=== PATIENT | male | born 1990 | race American Indian/Alaskan Native ===

== ENCOUNTER 2017-09-22 03:09 | Emergency (ER) | payer OTHER ==
[2017-09-22 03:26] VITALS: BP 140/77; PULSE 62; RESP 18; TEMP 98.9; O2SAT 100
[2017-09-22 04:47] LABS: ALB/GLOB RATIO 1.3 (1.0-2.1); ALBUMIN 4.3 g/dL (3.5-5.0); ALT/SGPT 32 U/L (21-72); AST/SGOT 22 U/L (17-59); BLOOD UREA NITROGEN 17 mg/dl (9-20); CALCIUM 9.7 mg/dL (8.4-10.2); GFR AFRICAN-AMERICAN > 60; GFR NON-AFRICAN AMERICAN > 60
--- NOTE | 2017-09-22 04:47 | ED PDOC ---
HPI: SOB/CHF/COPD Time Seen by Provider: 09/22/17 03:38 Chief Complaint (Nursing): Shortness Of Breath Chief Complaint (Provider): SOB History Per: Patient History/Exam Limitations: no limitations Additional Complaint(s): 27yo M in ED for eval of the following: SOB, sensation of fullness in chest, need to out in open space and tingling sensation in b/l arms. this episode occurred today and once yesterday. negative for: chest pain, cough, sore throat fever injures to chest/abd, abd pain, back pain. no pmhx no recent drug use no pertinent pmhx Past Medical History Reviewed: Historical Data, Nursing Documentation, Vital Signs Vital Signs: Last Vital Signs Temp 98.9 F 09/22/17 03:24 Pulse 62 09/22/17 03:24 Resp 18 09/22/17 03:26 BP 140/77 09/22/17 03:24 Pulse Ox 100 09/22/17 04:49 - Medical History PMH: Asthma Denies: Chronic Kidney Disease - Family History Family History: States: Stroke, Hypertension Denies: CAD - Home Medications Home Medications: Ambulatory Orders Medication Instructions Recorded Naproxen [Naprosyn] 500 mg PO Q12 #14 tab 01/26/16 Alprazolam [Xanax] 0.5 mg PO DAILY PRN #6 tab 09/22/17 - Allergies Allergies/Adverse Reactions: Allergies Allergy/AdvReac Type Severity Reaction Status Date / Time No Known Allergies Allergy Verified 09/01/14 23:11 Wells Criteria for PE - Wells Criteria for Pulmonary Embolism Clinical Signs and Symptoms of DVT: No P.E is #1 Diagnosis, or Equally Likely: No Heart Rate >100: No Immobilization at least 3 days;Surgery previous 4 weeks: No Previous, objectively diagnosed PE or DVT: No Hemoptysis: No Malignancy w/treatment within 6 months, or palliative: No Total Score: 0 Review of Systems ROS Statement: Except As Marked, All Systems Reviewed And Found Negative Constitutional: Negative for: Fever, Chills Respiratory: Negative for: Cough, Shortness of Breath Physical Exam - Reviewed Nursing Documentation Reviewed: Yes Vital Signs Reviewed: Yes - Physical Exam Appears: Positive for: Well, Non-toxic, No Acute Distress Skin: Positive for: Normal Color, Warm, DRY Eye Exam: Positive for: Normal appearance ENT: Positive for: Normal ENT Inspection Neck: Positive for: Normal, Painless ROM Cardiovascular/Chest: Positive for: Regular Rate, Rhythm Respiratory: Positive for: CNT, Normal Breath Sounds Gastrointestinal/Abdominal: Positive for: Normal Exam, Bowel Sounds, Soft. 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 - Laboratory Results Result Diagrams: 09/22/17 04:30 09/22/17 04:30 - ECG O2 Sat by Pulse Oximetry: 100 - Progress ED Course And Treament: Vital Signs - 24 hr 09/22/17 09/22/17 09/22/17 03:24 03:26 04:47 Temperature 98.9 F Pulse Rate 62 Respiratory 18 18 Rate Blood Pressure 140/77 O2 Sat by Pulse 100 100 Oximetry Orders Category Date Time Status COMP METABOLIC PANEL Stat Chem 09/22/17 04:30 Received CHEST TWO VIEWS (PA/LAT) [RAD] Stat Exams 09/22/17 03:38 Taken CBC (WITH DIFFERENTIAL) Stat KEVON 09/22/17 04:30 Received ALPRAZolam [Xanax] Med 09/22/17 04:21 Discontinued 0.5 mg .ROUTE .STK-MED ONE ALPRAZolam [Xanax] Med 09/22/17 03:52 Discontinued 0.5 mg PO ONCE ONE INFLUENZA A B Stat Serology 09/22/17 04:30 Received Medical Decision Making Medical Decision Makin09/22/17 04:30 Laboratory Results - last 72 hr 09/22/17 04:30 Sodium 141 Potassium 3.4 L Chloride 109 H Carbon Dioxide 25 Anion Gap 10 BUN 17 Creatinine 0.9 Est GFR ( Amer) > 60 Est GFR (Non-Af Amer) > 60 Random Glucose 89 Calcium 9.7 Total Bilirubin 0.3 AST 22 ALT 32 Alkaline Phosphatase 60 Total Protein 7.6 Albumin 4.3 Globulin 3.3 Albumin/Globulin Ratio 1.3 09/22/17 04:30 pt well appearing normal labsand stable VS. most likely symptoms attributed to panic attack, however strongly advised to f.u with pmd for further eval/work up Disposition - Clinical Impression Clinical Impression: Panic attack - Patient ED Disposition Is Patient to be Admitted: No Counseled Patient/Family Regarding: Studies Performed, Diagnosis, Need For Followup, Rx Given - Disposition Referrals: [facility] [Outside] Disposition: Routine/Home Disposition Time: 05:36 Condition: STABLE Prescriptions: Alprazolam [Xanax] 0.5 mg PO DAILY PRN #6 tab PRN Reason: Anxiety Instructions: Panic Attack (ED) Forms: [employer] (Monegasque)
[2017-09-22 05:27] LABS: BASO % 0.3 % (0.0-2.0); EOS % 0.8 % (0.0-4.0); HEMOGLOBIN 13.7 g/dL (12.0-18.0); LYMPH # 1.8 K/uL (1.0-4.3); MEAN CELL VOLUME 89.9 fl (80.0-94.0); MEAN CORPUSCULAR HEMOGLOBIN 29.8 pg (27.0-31.0); MEAN CORPUSCULAR HGB CONC 33.1 g/dL (33.0-37.0); MEAN PLATELET VOLUME 8.6 fl (7.2-11.7); MONO # 0.7 K/uL (0.0-0.8); MONO % 10.5 % (0.0-10.0); NEUT % 61.4 % (50.0-75.0); NRBC % 0.1 % (0.0-0.0); RBC 4.6 Mil/uL (4.40-5.90); RED CELL DISTRIBUTION WIDTH 13.5 % (11.5-14.5); WHITE BLOOD COUNT 6.5 K/uL (4.8-10.8)
--- NOTE | 2017-09-22 08:23 | RAD ---
HISTORY: cough COMPARISON: 09/01/2014 TECHNIQUE: Chest PA and lateral FINDINGS: LUNGS: No active pulmonary disease. PLEURA: No significant pleural effusion identified. No pneumothorax apparent. CARDIOVASCULAR: Normal. OSSEOUS STRUCTURES: No significant abnormalities. VISUALIZED UPPER ABDOMEN: Normal. OTHER FINDINGS: None. IMPRESSION: No active disease.
== END 2017-09-22 06:41 | disposition home or self-care (01) ==
LOC: H.ER 03:09
DX: F41.0 Panic disorder [episodic paroxysmal anxiety] (principal)

== ENCOUNTER 2017-09-29 19:11 | Emergency (ER) | payer SELFPAY ==
[2017-09-29 19:18] VITALS: BP 119/82; PULSE 71; RESP 16; TEMP 98; O2SAT 100
[2017-09-29] MEDS ORDERED: Alum-Mag Hydrox-Simethicone Susp (30 mL) PO STA (20:20)
--- NOTE | 2017-09-29 20:47 | ED PDOC ---
HPI: SOB/CHF/COPD Time Seen by Provider: 09/29/17 19:26 Chief Complaint (Nursing): Shortness Of Breath Chief Complaint (Provider): Shortness of Breath History Per: Patient History/Exam Limitations: no limitations Onset/Duration Of Symptoms: Hrs (x1 prior to arrival), Sudden Onset Current Symptoms Are (Timing): Still Present Quality: Tightness (chest tightness) Associated Symptoms: Productive Cough (minimally). denies: Fever, Chills, Chest Pain Additional Complaint(s): Shad Barroso, a 27 year old male presents to the emergency department complaining of shortness of breath with sudden onset one hour prior to arrival while watching TV. Also reports chest tightness, as well as nausea for 5 days associated with decreased appetite. He was seen here on 09/22/2017 with a similar complaint and was diagnosed with a panic attack. Patient also has had a minimally productive cough for 1 month, but no fever or chills. Denies any associated stress, feelings of anxiety, diarrhea, vomiting, or constipation. PMD: Family practice clinic Past Medical History Reviewed: Historical Data, Nursing Documentation, Vital Signs Vital Signs: Last Vital Signs Temp 98.0 F 09/29/17 19:18 Pulse 71 09/29/17 19:18 Resp 16 09/29/17 19:18 BP 119/82 09/29/17 19:18 Pulse Ox 100 09/29/17 22:43 - Medical History PMH: Asthma (as a child) Denies: Chronic Kidney Disease - Surgical History Surgical History: No Surg Hx - Family History Family History: States: Stroke, Diabetes (in brother), Hypertension Denies: CAD - Social History Current smoker - smoking cessation education provided: No Alcohol: Occasional Drugs: Cannabis (smokes marijuana occasionally) - Home Medications Home Medications: Ambulatory Orders Medication Instructions Recorded Naproxen [Naprosyn] 500 mg PO Q12 #14 tab 01/26/16 Alprazolam [Xanax] 0.5 mg PO DAILY PRN #6 tab 09/22/17 Cyclobenzaprine [Cyclobenzaprine 10 mg PO TID PRN #10 tab 09/29/17 HCl] Famotidine [Pepcid] 40 mg PO DAILY PRN #14 tab 09/29/17 - Allergies Allergies/Adverse Reactions: Allergies Allergy/AdvReac Type Severity Reaction Status Date / Time No Known Allergies Allergy Verified 09/01/14 23:11 Review of Systems ROS Statement: Except As Marked, All Systems Reviewed And Found Negative (As per HPI, otherwise negative) Constitutional: Negative for: Fever, Chills Cardiovascular: Positive for: Other (chest tightness) Respiratory: Positive for: Cough (1 month), Shortness of Breath Gastrointestinal: Positive for: Nausea, Other (decreased appetite). Negative for: Vomiting, Constipation Musculoskeletal: Positive for: Neck Pain (undergoing workup at clinic for intermittent neck spasms) Neurological: Negative for: Dizziness Psych: Negative for: Anxiety, Other (Stress) Physical Exam - Reviewed Nursing Documentation Reviewed: Yes Vital Signs Reviewed: Yes - Physical Exam Appears: Positive for: Non-toxic, No Acute Distress Head Exam: Positive for: ATRAUMATIC, NORMOCEPHALIC Skin: Positive for: Warm, Dry Eye Exam: Positive for: EOMI, PERRL ENT: Negative for: Pharyngeal Erythema, Tonsillar Exudate Neck: Positive for: Painless ROM, Supple, Trachea Midline, Pain On Movement Of Neck (LEFT) Cardiovascular/Chest: Positive for: Regular Rate, Rhythm, Chest Non Tender. Negative for: Murmur Respiratory: Positive for: Normal Breath Sounds. Negative for: Accessory Muscle Use, Rales, Rhonchi, Wheezing, Respiratory Distress Gastrointestinal/Abdominal: Positive for: Soft. Negative for: Tenderness Back: Positive for: Normal Inspection. Negative for: Vertebral Tenderness Extremity: Positive for: Normal ROM. 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 Negative for: Motor/Sensory Deficits - Laboratory Results Result Diagrams: 09/29/17 20:50 09/29/17 20:50 - ECG ECG: Positive for: Interpreted By Ms ECG Rhythm: Positive for: Normal QRS, Normal ST Segment, Sinus Rhythm O2 Sat by Pulse Oximetry: 100 (RA) Pulse Ox Interpretation: Normal - Progress Condition: Improved Medical Decision Making Medical Decision Making: Time: 20:19 Initial Impression: Shortness of Breath Differential Diagnosis includes but is not limited to: Anxiety or Panic Attack, Pancreatitis, Gastritis, Reflux Initial Plan: --Arterial Blood Gas Shock Panel --EKG --B-Type Natriuretic Peptide --CMP --Creatine Phosphokinase --Drug Screen, Urine --Lipase --Magnesium --Phosphorous --Troponin I --Urine Dipstick --CBC --Potassium Bicarbonate/ Potass 50 meq PO ONCE --Aluminum Hydroxide/ Magnesium 30 ml PO --Pepcid 40 mg PO --Reevaluation Feel better in reevaluation. Reviewed findings w patient. will treat possible reflux and neck spasm Clinical Impression: Upon provider evaluation patient is medically stable, and requires no further treatment in the ED at this time. Patient will be discharged with Rx for Cyclobenzaprine HCl and Pepcid 40 mg PO daily. Counseling was provided and all questions were answered regarding diagnosis and need for follow up with PMD. There is agreement to discharge plan. Return if symptoms persist or worsen. Scribe Attestation: Documented by Madeline Valle, acting as a scribe for Ирина Lindsay MD Provider Scribe Attestation: All medical record entries made by the Scribe were at my direction and personally dictated by me. I have reviewed the chart and agree that the record accurately reflects my personal performance of the history, physical exam, medical decision making, and the department course for this patient. I have also personally directed, reviewed, and agree with the discharge instructions and disposition. Disposition - Clinical Impression Clinical Impression: Dyspnea, Neck strain - Patient ED Disposition Is Patient to be Admitted: No - Disposition Referrals: [facility] [Outside] (FOLLOW UP SCHEDULED WITH CLINIC FOR REEVALUATION KEEP YOUR APPOINTMENT FOR YOUR ULTRASOUND ON SUNDAY) Disposition: Routine/Home Disposition Time: 22:13 Condition: IMPROVED Prescriptions: Cyclobenzaprine [Cyclobenzaprine HCl] 10 mg PO TID PRN #10 tab PRN Reason: Muscle Spasm Famotidine [Pepcid] 40 mg PO DAILY PRN #14 tab PRN Reason: reflux Instructions: Cervical Strain (DC), Hypokalemia (ED), Dyspnea (ED) Forms: [employer] (Swiss)
[2017-09-29] MEDS ORDERED: Alum-Mag Hydrox-Simethicone Susp (30 mL) ONE (20:52)
[2017-09-29 20:56] LABS: BASO % 0.4 % (0.0-2.0); EOS # 0.1 K/uL (0.0-0.7); EOS % 1.1 % (0.0-4.0); HEMOGLOBIN 14.1 g/dL (12.0-18.0); LYMPH # 2.1 K/uL (1.0-4.3); LYMPH % 30.9 % (20.0-40.0); MEAN CELL VOLUME 89.1 fl (80.0-94.0); MEAN CORPUSCULAR HEMOGLOBIN 29.7 pg (27.0-31.0); MEAN CORPUSCULAR HGB CONC 33.4 g/dL (33.0-37.0); MEAN PLATELET VOLUME 8.1 fl (7.2-11.7); MONO # 0.8 K/uL (0.0-0.8); MONO % 11.7 % (0.0-10.0); NEUT # 3.7 K/uL (1.8-7.0); NEUT % 55.9 % (50.0-75.0); NRBC % 0.1 % (0.0-0.0); RBC 4.73 Mil/uL (4.40-5.90); RED CELL DISTRIBUTION WIDTH 13.2 % (11.5-14.5); WHITE BLOOD COUNT 6.7 K/uL (4.8-10.8)
[2017-09-29 21:06] LABS: ABG ALLEN TEST YES; ARTERIAL BLOOD GAS HCO3 27.9 mmol/L (21-28); ARTERIAL BLOOD GAS O2 SAT 100.5 % (95-98); ARTERIAL BLOOD GAS PCO2 30 mm/Hg (35-45); ARTERIAL BLOOD GAS PH 7.54 (7.35-7.45); ARTERIAL BLOOD GAS PO2 125 mm/Hg (80-100); ARTERIAL BLOOD GAS TCO2 26.6 mmol/L (22-28)
[2017-09-29 21:20] LABS: ALB/GLOB RATIO 1.1 (1.0-2.1); ALBUMIN 3.9 g/dL (3.5-5.0); ALT/SGPT 31 U/L (21-72); AST/SGOT 22 U/L (17-59); BLOOD UREA NITROGEN 15 mg/dl (9-20); CALCIUM 9.8 mg/dL (8.4-10.2); GFR AFRICAN-AMERICAN > 60; GFR NON-AFRICAN AMERICAN > 60; LIPASE 150 U/L (23-300); MAGNESIUM 1.8 MG/DL (1.6-2.3)
[2017-09-29] MEDS ORDERED: K-Lyte 25meq EF Tab PO ONE (21:25)
[2017-09-29 21:30] LABS: B-TYPE NATRIURETIC PEPTIDE 30.6 pg/ml (0-450)
[2017-09-29 23:03] LABS: BARBITURATES, UR NEGATIVE (NEGATIVE); BENZODIAZEPINES, UR NEGATIVE (NEGATIVE); OPIATES, UR NEGATIVE (NEGATIVE); PHENCYCLIDINE, UR NEGATIVE (NEGATIVE)
== END 2017-09-29 22:32 | disposition home or self-care (01) ==
LOC: H.ER 19:11
DX: R06.00 Dyspnea, unspecified (principal); E87.6 Hypokalemia; M54.2 Cervicalgia

== ENCOUNTER 2017-10-08 | Emergency (ER) | payer SELFPAY ==
[2017-10-08 01:19] VITALS: BP 119/68; PULSE 71; RESP 16; TEMP 98.4; O2SAT 98
--- NOTE | 2017-10-08 03:04 | ED PDOC ---
HPI: Headache Time Seen by Provider: 10/08/17 02:48 Chief Complaint (Nursing): Headache Chief Complaint (Provider): Neck pain History Per: Patient Additional Complaint(s): 27 yo male, PMH of asthma, presents to Ed with complaints of left sided neck pain x 3 weeks. Pt reports that he feels "small balls" on the base of his neck. Pt has been taken muscle relaxer, prescribed to him from clinic; however, no relief. Pt had an US done, ordered by clinic, and has been anxious about results. No feve ror chills. Pt does admit to recent URI Past Medical History Reviewed: Nursing Documentation, Vital Signs Vital Signs: Last Vital Signs Temp 98.4 F 10/08/17 01:08 Pulse 71 10/08/17 01:08 Resp 16 10/08/17 01:08 BP 119/68 10/08/17 01:08 Pulse Ox 98 10/08/17 01:08 - Medical History PMH: Asthma (as a child) Denies: Chronic Kidney Disease - Surgical History Surgical History: No Surg Hx - Family History Family History: States: Stroke, Diabetes (in brother), Hypertension Denies: CAD - Living Arrangements Living Arrangements: With Family - Social History Current smoker - smoking cessation education provided: No Alcohol: Social Drugs: Denies - Home Medications Home Medications: Ambulatory Orders Medication Instructions Recorded Naproxen [Naprosyn] 500 mg PO Q12 #14 tab 01/26/16 Alprazolam [Xanax] 0.5 mg PO DAILY PRN #6 tab 09/22/17 Cyclobenzaprine [Cyclobenzaprine 10 mg PO TID PRN #10 tab 09/29/17 HCl] Famotidine [Pepcid] 40 mg PO DAILY PRN #14 tab 09/29/17 - Allergies Allergies/Adverse Reactions: Allergies Allergy/AdvReac Type Severity Reaction Status Date / Time No Known Allergies Allergy Verified 09/01/14 23:11 Review of Systems ROS Statement: Except As Marked, All Systems Reviewed And Found Negative Musculoskeletal: Positive for: Neck Pain Physical Exam - Reviewed Nursing Documentation Reviewed: Yes Vital Signs Reviewed: Yes - Physical Exam Appears: Positive for: Well, Non-toxic, No Acute Distress Head Exam: Positive for: ATRAUMATIC, NORMAL INSPECTION, NORMOCEPHALIC Skin: Positive for: Normal Color, Warm, DRY Eye Exam: Positive for: EOMI, Normal appearance, PERRL ENT: Positive for: Normal ENT Inspection Neck: Positive for: Normal, Painless ROM, Supple, Trachea Midline, See Diagram ( (+) small ~ 1-2cm,mobile, boggy mass at base of left side of neck, consistent with lymph node. ). Negative for: Decreased ROM, Limited ROM, Pain On Movement Of Neck Cardiovascular/Chest: Positive for: Regular Rate, Rhythm Respiratory: Positive for: CNT, Normal Breath Sounds Gastrointestinal/Abdominal: Positive for: Normal Exam, Bowel Sounds, Soft Back: Positive for: Normal Inspection Extremity: Positive for: Normal ROM Neurologic/Psych: Positive for: Alert, Oriented - ECG O2 Sat by Pulse Oximetry: 98 Medical Decision Making Medical Decision Making: Pt medicated with Motrin PO US report 10/02/17: IMPRESSION: Limited lymphadenopathy is identified at the inferior left neck soft tissue superficially. Further neck characterization can provided by CT with contrast if clinically warranted. Pt educated on lymph nodes, as well as US report and demonstrated full understanding Pt calmer after hearing US report. Advised to continue on Motrin as directed and to follow up with clinic as scheduled Disposition - Clinical Impression Clinical Impression: Lymphadenopathy - Patient ED Disposition Is Patient to be Admitted: No - Disposition Disposition: Routine/Home Disposition Time: 03:09 Condition: STABLE - POA Present On Arrival: None
== END 2017-10-08 03:23 | disposition home or self-care (01) ==
LOC: H.ER
DX: R59.9 Enlarged lymph nodes, unspecified (principal); J45.909 Unspecified asthma, uncomplicated

== ENCOUNTER 2017-11-30 00:22 | Emergency (ER) | payer SELFPAY ==
[2017-11-30 00:46] VITALS: BMI 22.6
[2017-11-30 00:51] VITALS: BP 118/56; PULSE 75; RESP 16; TEMP 98.5; O2SAT 98
--- NOTE | 2017-11-30 02:19 | ED PDOC ---
HPI: Back Time Seen by Provider: 11/30/17 00:44 Chief Complaint (Nursing): Back Pain Chief Complaint (Provider): back pain History Per: Patient History/Exam Limitations: no limitations Onset/Duration Of Symptoms: Days (11/26/17) Current Symptoms Are (Timing): Still Present Quality Of Discomfort: "Pain" Exacerbating Factor(s): Movement, Other (twists and bends) Additional Complaint(s): 27 year old male presents to the ED complaining of back pain onset Sunday, 11/26. Reports pain has been worse since onset and worsens whenever he moves, twists, bends. Denies heavy lifting, abdominal pain, hematuria, fever, chills, numbness or weakness of extremities, or body pain. PMD: July Keating Past Medical History Reviewed: Historical Data, Nursing Documentation, Vital Signs Vital Signs: Last Vital Signs Temp 98.5 F 11/30/17 00:47 Pulse 75 11/30/17 00:47 Resp 16 11/30/17 00:47 BP 118/56 L 11/30/17 00:47 Pulse Ox 98 11/30/17 00:47 - Medical History PMH: Asthma (as a child), Fractures (Left Lower extremity) Denies: Chronic Kidney Disease - Family History Family History: States: Stroke, Diabetes (in brother), Hypertension Denies: CAD - Home Medications Home Medications: Ambulatory Orders Medication Instructions Recorded Naproxen [Naprosyn] 500 mg PO Q12 #14 tab 01/26/16 Alprazolam [Xanax] 0.5 mg PO DAILY PRN #6 tab 09/22/17 Cyclobenzaprine [Cyclobenzaprine 10 mg PO TID PRN #10 tab 09/29/17 HCl] Famotidine [Pepcid] 40 mg PO DAILY PRN #14 tab 09/29/17 Ibuprofen [Motrin] 600 mg PO Q6 #20 tab 10/08/17 Cyclobenzaprine [Cyclobenzaprine 10 mg PO BID #15 tab 11/30/17 HCl] Ibuprofen [Motrin Tab] 600 mg PO Q6 #30 tab 11/30/17 Lidocaine 1 each TP DAILY #5 adh..patch 11/30/17 - Allergies Allergies/Adverse Reactions: Allergies Allergy/AdvReac Type Severity Reaction Status Date / Time No Known Allergies Allergy Verified 11/30/17 00:46 Review of Systems ROS Statement: Except As Marked, All Systems Reviewed And Found Negative Constitutional: Negative for: Fever, Chills, Other (body pain) Gastrointestinal: Negative for: Abdominal Pain Genitourinary Male: Negative for: Hematuria Neurological: Negative for: Weakness, Numbness Physical Exam - Reviewed Nursing Documentation Reviewed: Yes Vital Signs Reviewed: Yes - Physical Exam Appears: Positive for: Well, Non-toxic, No Acute Distress Head Exam: Positive for: ATRAUMATIC, NORMAL INSPECTION, NORMOCEPHALIC Skin: Positive for: Normal Color, Warm, Dry Eye Exam: Positive for: EOMI, Normal appearance, PERRL ENT: Positive for: Normal ENT Inspection Neck: Positive for: Normal, Painless ROM, Supple. Negative for: Decreased ROM, Limited ROM Cardiovascular/Chest: Positive for: Regular Rate, Rhythm. Negative for: Murmur Respiratory: Positive for: Normal Breath Sounds. Negative for: Decreased Breath Sounds, Accessory Muscle Use, Respiratory Distress Gastrointestinal/Abdominal: Positive for: Normal Exam, Bowel Sounds, Soft. Negative for: Tenderness, Guarding, Rebound Back: Positive for: Other (mild tenderness to palpation to upper left thoracic paravertebral) Extremity: Positive for: Normal ROM. Negative for: Tenderness, Pedal Edema, Deformity Neurologic/Psych: Positive for: Alert, Oriented (x3), Gait - ECG O2 Sat by Pulse Oximetry: 98 (RA) Pulse Ox Interpretation: Normal Medical Decision Making Medical Decision Making: Time: 00:48 A/P: Well appearing male with back strain. Not concerned for cauda equina, spinal-stenosis, kidney stone, or other significant process --ED Urine dipstick (POC) --Chest two views (PA/LAT) [RAD] --Flexeril 10 mg PO stat --Toradol 60 mg IM --Reevaluation 3AM Patient is feeling better, will d/c home with medications. Advised patient to f /u w/ PMD on Sunday. Return precautions given. Scribe Attestation: Documented by Madeline Valle, acting as a scribe for Yasir Franks MD Provider Scribe Attestation: All medical record entries made by the Scribe were at my direction and personally dictated by me. I have reviewed the chart and agree that the record accurately reflects my personal performance of the history, physical exam, medical decision making, and the department course for this patient. I have also personally directed, reviewed, and agree with the discharge instructions and disposition. Disposition - Clinical Impression Clinical Impression: Upper back strain - Disposition Referrals: July Keating MD [Primary Care Provider] - Disposition: Routine/Home Disposition Time: 03:11 Condition: IMPROVED Prescriptions: Cyclobenzaprine [Cyclobenzaprine HCl] 10 mg PO BID #15 tab Ibuprofen [Motrin Tab] 600 mg PO Q6 #30 tab Lidocaine 1 each TP DAILY #5 adh..patch Instructions: Muscle Strain Forms: [employer] (French)
--- NOTE | 2017-11-30 08:16 | RAD ---
HISTORY: L rib pain COMPARISON: Chest radiographs 09/22/2017. TECHNIQUE: Chest PA and lateral FINDINGS: LUNGS: No active pulmonary disease. PLEURA: No significant pleural effusion identified. No pneumothorax apparent. CARDIOVASCULAR: Normal. OSSEOUS STRUCTURES: No significant abnormalities. VISUALIZED UPPER ABDOMEN: Normal. OTHER FINDINGS: None. IMPRESSION: No interval acute cardiopulmonary disease appreciated.
== END 2017-11-30 03:20 | disposition home or self-care (01) ==
LOC: H.ER 00:22
DX: S39.012A Strain of muscle, fascia and tendon of lower back, initial encounter (principal); X50.9XXA Other and unspecified overexertion or strenuous movements or postures, initial encounter; Y92.89 Other specified places as the place of occurrence of the external cause; J45.909 Unspecified asthma, uncomplicated
CPT/HCPCS: 71046; 96372; 99283; J1885

== ENCOUNTER 2018-06-15 14:45 | Emergency (ER) | payer SELFPAY ==
[2018-06-15 14:46] VITALS: BMI 22.6
[2018-06-15 15:50] VITALS: BP 121/76; PULSE 63; RESP 18; TEMP 98.4; O2SAT 99
[2018-06-15] MEDS ORDERED: Amoxicillin-Clav 875-125 mg Tab PO STA (15:59)
--- NOTE | 2018-06-15 16:14 | ED PDOC ---
HPI: Dental Pain/Injury Time Seen by Provider: 06/15/18 15:50 Chief Complaint (Nursing): Dental Pain Chief Complaint (Provider): Dental Pain History Per: Patient History/Exam Limitations: no limitations Onset/Duration Of Symptoms: Days (x1) Additional Complaint(s): Shad Barroso is a 28 year old male with no past medical history who is presenting to the ED for evaluation of left lower molar pain onset last night, and throat pain onset this morning. Patient reports pain with swallowing and states he has not taken any medications prior to arrival. He admits that his last dental checkup was 6-10 months ago. He denies any fever, chills, ear pain, cough, nausea, vomiting, diarrhea, chest pain, or abdominal pain. PMD: Clinic Past Medical History Reviewed: Historical Data, Nursing Documentation, Vital Signs Vital Signs: Last Vital Signs Temp 98.4 F 06/15/18 15:49 Pulse 63 06/15/18 15:49 Resp 18 06/15/18 15:49 BP 121/76 06/15/18 15:49 Pulse Ox 99 06/15/18 15:49 - Medical History PMH: Asthma (as a child), Fractures (Left Lower extremity) - Surgical History Surgical History: No Surg Hx - Family History Family History: States: Hypertension - Social History Current smoker - smoking cessation education provided: No Alcohol: Social Drugs: Denies - Home Medications Home Medications: Ambulatory Orders Medication Instructions Recorded Naproxen [Naprosyn] 500 mg PO Q12 #14 tab 01/26/16 Alprazolam [Xanax] 0.5 mg PO DAILY PRN #6 tab 09/22/17 Cyclobenzaprine [Cyclobenzaprine 10 mg PO TID PRN #10 tab 09/29/17 HCl] Famotidine [Pepcid] 40 mg PO DAILY PRN #14 tab 09/29/17 Ibuprofen [Motrin] 600 mg PO Q6 #20 tab 10/08/17 Cyclobenzaprine [Cyclobenzaprine 10 mg PO BID #15 tab 11/30/17 HCl] RX: Ibuprofen [Motrin Tab] 600 mg PO Q6 #30 tab 11/30/17 RX: Lidocaine 1 each TP DAILY #5 adh..patch 11/30/17 Acetaminophen [Acetaminophen 8 650 mg PO Q8 PRN #21 tablet.er 06/15/18 Hour] Amoxicillin/Clavulanate [Augmentin 1 tab PO BID #14 tab 06/15/18 875 MG-125 MG] RX: Ibuprofen [Motrin Tab] 600 mg PO Q6 PRN #20 tab 06/15/18 - Allergies Allergies/Adverse Reactions: Allergies Allergy/AdvReac Type Severity Reaction Status Date / Time No Known Allergies Allergy Verified 06/15/18 15:49 Review of Systems ROS Statement: Except As Marked, All Systems Reviewed And Found Negative Constitutional: Negative for: Fever, Chills ENT: Positive for: Throat Pain, Other (dental pain). Negative for: Ear Pain Cardiovascular: Negative for: Chest Pain Respiratory: Negative for: Cough Gastrointestinal: Negative for: Nausea, Vomiting, Abdominal Pain, Diarrhea Physical Exam - Reviewed Nursing Documentation Reviewed: Yes Vital Signs Reviewed: Yes - Physical Exam Comments: GENERAL APPEARANCE: Patient is awake, alert, oriented x 3, in no acute distress. Resting comfortably. SKIN: Warm, dry; (-) cyanosis. NECK: Supple, FROM ENMT: Mucous membranes moist. (-) muffled voice, (-) drooling. (+) Left sided tonsillar erythema, (+) left sided exudates, (+) 2+ tonsillar hypertrophy bilaterally , (+) Dental rot to left lower posterior most molar with surrounding gingival erythema, (+) dental reji and tenderness to palpation. (+) uvula midline. TMs: non-bulging, non-erythematous. Airway patent, (-) stridor. FROM of mandible. CHEST AND RESPIRATORY: (-) rales, (-) rhonchi, (-) wheezes; breath sounds equal bilaterally. Respirations even and nonlabored, speaking in full sentences. HEART AND CARDIOVASCULAR: (-) irregularity EXTREMITIES: (-) deformity NEURO AND PSYCH: Mental status as above. Gait: steady. Speech Clear. (-) facial asymmetry (-) aphasia. - ECG O2 Sat by Pulse Oximetry: 99 (RA) Pulse Ox Interpretation: Normal Medical Decision Making Medical Decision Making: Time: 15:50 Impression: toothache probable dental infection, tonsillitis Plan: --Augmentin 1 tab PO --Toradol 30 mg IM --Throat Culture --Rapid Strep --Re-evaluation 1630 Rapid Strep: Negative On re-evaluation, patient reports improvement of symptoms. On exam, patient remains AAOx3, in no acute distress. Lungs clear to auscultation, cardiac RRR, repeat neuro exam shows no focal findings. VSS, stable for discharge. Lab/Diagnostic results d/w the patient in great detail. Diagnosis of thrat pain/tonsillitis, dental pain/infection d/w the patient. Based on history, exam and diagnostic results, plan will be for outpatient follow up with PMD and dental. Patient instructed to follow-up with pmd / referral provided / the clinic in 1- 2 days without fail. Advised to take medication as prescribed. Return to the emergency room at any time for any new or worsening symptoms. Patient states he fully agrees with and understands discharge instructions. States that he agrees with the plan and disposition. Verbalized and repeated discharge instructions and plan. I have given the patient opportunity to ask any additional questions. Scribe Attestation: Documented by Suzanna Peoples, acting as a scribe for Tierney Rodriguez PA-C. Provider Scribe Attestation: All medical record entries made by the Scribe were at my direction and personally dictated by me. I have reviewed the chart and agree that the record accurately reflects my personal performance of the history, physical exam, medical decision making, and the department course for this patient. I have also personally directed, reviewed, and agree with the discharge instructions and disposition. Disposition - Clinical Impression Clinical Impression: Dental caries, Tonsillitis, Dental infection, Throat pain in adult - Patient ED Disposition Is Patient to be Admitted: No Counseled Patient/Family Regarding: Studies Performed, Diagnosis, Need For Followup, Rx Given - Disposition Referrals: [facility] [Outside] Disposition: Routine/Home Disposition Time: 16:34 Condition: STABLE Additional Instructions: ALSO FOLLOW UP WITH DENTAL SOON POSSIBLE. The emergency medical care you received today was directed at your acute symptoms. If you were prescribed any medication, please fill it and take as directed. It may take several days for your symptoms to resolve. Return to the Emergency Department if your symptoms worsen, do not improve, or if you have any other problems. Please contact your doctor in 2 days for re-evaluation and follow up / or call one of the physicians/clinics you have been referred to that are listed on the Patient Visit Information form that is included in your discharge packet. Bring any paperwork you were given at discharge with you along with any medications you are taking to your follow up visit. Our treatment cannot replace ongoing medical care by a primary care provider (PCP) outside of the emergency department. Prescriptions: Acetaminophen [Acetaminophen 8 Hour] 650 mg PO Q8 PRN #21 tablet.er PRN Reason: Pain, Moderate (4-7) Amoxicillin/Clavulanate [Augmentin 875 MG-125 MG] 1 tab PO BID #14 tab RX: Ibuprofen [Motrin Tab] 600 mg PO Q6 PRN #20 tab PRN Reason: Pain, Moderate (4-7) Instructions: Tooth Decay, Adult, Sore Throat in Adults, Dental Pain Forms: [employer] Connect (Telugu), [facility] ED School/Work Excuse Print Language: AZERBAIJANI - POA Present On Arrival: None Results - Lab Results Lab Results: 06/15/18 16:13 Grp A Beta Strep Ag Negative
[2018-06-15] MEDS ORDERED: Amoxicillin-Clav 875-125 mg Tab PO ONE (16:17)
== END 2018-06-15 16:51 | disposition home or self-care (01) ==
LOC: H.ER 14:45
DX: K02.9 Dental caries, unspecified (principal); J03.90 Acute tonsillitis, unspecified; K04.7 Periapical abscess without sinus; J45.909 Unspecified asthma, uncomplicated
CPT/HCPCS: 87070; 87430; 96372; 99283; J1885

== ENCOUNTER 2019-02-08 18:45 | Emergency (ER) | payer BC, OTHER, SELFPAY ==
[2019-02-08 19:14] VITALS: O2SAT 100; BMI 25.6
--- NOTE | 2019-02-08 19:39 | ED PDOC ---
HPI: Chest Pain Time Seen by Provider: 02/08/19 19:14 Chief Complaint (Nursing): Chest Pain Chief Complaint (Provider): upper extremity pain History Per: Patient History/Exam Limitations: no limitations Onset/Duration Of Symptoms: Days (5x) Current Symptoms Are (Timing): Still Present Severity: Moderate Additional Complaint(s): 28 year old male with no pertinent past medical history presents to the ED for an evaluation of left arm pain that started 4x days ago. Patient states that 4x days ago, he began experiencing left shoulder pain that radiated down his left arm. The shoulder pain has since become intermittent with the pain to his left upper arm radiating down his left hand. Patient further reports that yesterday he noted having left sided chest pain. Patient states that the arm pain worsens with movement of the left shoulder. Patient is right hand dominant. Patient denies having shortness of breath, fevers, chills, hemoptysis, history of previous pulmonary embolism or DVT, cough, illicit drug use, smoking, familial history of CAD or NV. PMD: None provided Past Medical History Reviewed: Historical Data, Nursing Documentation, Vital Signs Vital Signs: Last Vital Signs Temp 98.4 F 02/08/19 19:13 Pulse 61 02/08/19 19:13 Resp 16 02/08/19 19:13 BP 115/68 02/08/19 19:13 Pulse Ox 100 02/08/19 19:13 BRAULIO Report Viewed: Yes Primary Care Provider: Non [facility] Provider, - Medical History PMH: Asthma (as a child), Fractures (Left Lower extremity) Denies: Chronic Kidney Disease - Family History Family History: States: Stroke, Diabetes (in brother), Hypertension Denies: NV, CAD - Social History Current smoker - smoking cessation education provided: No Drugs: Denies - Immunization History Hx Tetanus Toxoid Vaccination: Yes Hx Influenza Vaccination: No Hx Pneumococcal Vaccination: No - Home Medications Home Medications: Ambulatory Orders Medication Instructions Recorded Naproxen [Naprosyn] 500 mg PO Q12 #14 tab 01/26/16 Alprazolam [Xanax] 0.5 mg PO DAILY PRN #6 tab 09/22/17 Cyclobenzaprine [Cyclobenzaprine 10 mg PO TID PRN #10 tab 09/29/17 HCl] Famotidine [Pepcid] 40 mg PO DAILY PRN #14 tab 09/29/17 Ibuprofen [Motrin] 600 mg PO Q6 #20 tab 10/08/17 Cyclobenzaprine [Cyclobenzaprine 10 mg PO BID #15 tab 11/30/17 HCl] Ibuprofen [Motrin Tab] 600 mg PO Q6 #30 tab 11/30/17 Lidocaine 1 each TP DAILY #5 adh..patch 11/30/17 Acetaminophen [Acetaminophen 8 650 mg PO Q8 PRN #21 tablet.er 06/15/18 Hour] Amoxicillin/Clavulanate [Augmentin 1 tab PO BID #14 tab 06/15/18 875 MG-125 MG] Ibuprofen [Motrin Tab] 600 mg PO Q6 PRN #20 tab 06/15/18 Meloxicam [Mobic] 1 - 2 tab PO DAILY PRN #10 tab 02/08/19 - Allergies Allergies/Adverse Reactions: Allergies Allergy/AdvReac Type Severity Reaction Status Date / Time No Known Allergies Allergy Verified 06/15/18 15:49 QUETA Risk Score for UA/NSTEMI - QUETA Risk Score Age > 64: NO 3 or more CAD Risk Factors: NO Known CAD (Stenosis greater than 50%): NO Aspirin use in past 7 days: NO Severe Angina: NO EKG ST changes greater than 0.5mm: NO Positive Cardiac Marker: NO QUETA Score: 0 Risk %: 5% Review of Systems ROS Statement: Except As Marked, All Systems Reviewed And Found Negative Constitutional: Negative for: Fever, Chills Cardiovascular: Positive for: Chest Pain (left sided.) Respiratory: Negative for: Cough, Shortness of Breath, Hemoptysis Musculoskeletal: Positive for: Other (left shoulder pain radiating down left arm, left upper arm pain radiating down to left hand.) Physical Exam - Reviewed Nursing Documentation Reviewed: Yes Vital Signs Reviewed: Yes - Physical Exam Appears: Positive for: Well, Non-toxic, No Acute Distress Head Exam: Positive for: ATRAUMATIC, NORMOCEPHALIC Skin: Positive for: Normal Color, Warm, Dry Cardiovascular/Chest: Positive for: Regular Rate, Rhythm Respiratory: Positive for: Normal Breath Sounds Pulses-Radial (L): 2+ Pulses-Radial (R): 2+ Gastrointestinal/Abdominal: Positive for: Normal Exam, Soft. Negative for: Tenderness Extremity: Positive for: Other (left upper extremity: (-) tenderness, (-) swelling, (-) deformity. Full ROM actively of all joints. 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 Negative for: ST/T Changes O2 Sat by Pulse Oximetry: 100 (RA) Pulse Ox Interpretation: Normal Medical Decision Making Medical Decision Makin:14 Initial impression: 28 year old male with upper extremity pain and chest pain. Initial plan: * XRay chest 2 views * XRay shoulder left * EKG * CMP * drug screen urinary * troponin I * CBC with differential * reevaluation 20:39 Patient informed of all results. Patient agrees with plan and care. Patient offered toradol, but refuses and states that he feels much better. Patient advised to follow up with orthopedist and PMD, and to return to ED immediately if symptoms persist or worsen. ScribeAttestation: Documented byTierney Raymundo, acting as a scribe for Sergio Green Provider ScribeAttestation: All medical record entries made by the Scribe were at my direction and personally dictated by me. I have reviewed the chart and agree that the record accurately reflects my personal performance of the history, physical exam, medical decision making, and the department course for this patient. I have also personally directed, reviewed, and agree with the discharge instructions and disposition. Disposition - Clinical Impression Clinical Impression: Chest pain, Shoulder pain - Patient ED Disposition Is Patient to be Admitted: No - Disposition Referrals: [facility] [Outside] Juan F Benedict III, MD [Staff Provider] - Disposition Time: 20:39 Additional Instructions: FOLLOW UP WITH YOUR DOCTOR FOR FURTHER EVALUATION RETURN TO ED IMMEDIATELY IF SYMPTOMS WORSEN Prescriptions: Meloxicam [Mobic] 1 - 2 tab PO DAILY PRN #10 tab PRN Reason: Pain Instructions: Chest Pain That Is Not Caused by the Heart (DC), Shoulder Pain (DC) Forms: [employer] Connect (Azeri) Print Language: LITHUANIAN
[2019-02-08 19:56] LABS: BASO % 0.5 % (0.0-2.0); EOS # 0.1 K/uL (0.0-0.7); EOS % 1.3 % (0.0-4.0); HEMOGLOBIN 14.3 g/dL (12.0-18.0); LYMPH # 2.6 K/uL (1.0-4.3); LYMPH % 35.4 % (20.0-40.0); MEAN CELL VOLUME 89.8 fl (80.0-94.0); MEAN CORPUSCULAR HEMOGLOBIN 30.3 pg (27.0-31.0); MEAN CORPUSCULAR HGB CONC 33.8 g/dL (33.0-37.0); MEAN PLATELET VOLUME 8.1 fl (7.2-11.7); MONO # 0.8 K/uL (0.0-0.8); MONO % 10.4 % (0.0-10.0); NEUT # 3.8 K/uL (1.8-7.0); NEUT % 52.4 % (50.0-75.0); RBC 4.7 Mil/uL (4.40-5.90); RED CELL DISTRIBUTION WIDTH 13.8 % (11.5-14.5); WHITE BLOOD COUNT 7.3 K/uL (4.8-10.8)
[2019-02-08 20:10] LABS: ALB/GLOB RATIO 1.2 (1.0-2.1); ALBUMIN 4.3 g/dL (3.5-5.0); ALT/SGPT 27 U/L (21-72); AST/SGOT 35 U/L (17-59); BLOOD UREA NITROGEN 15 mg/dl (9-20); CALCIUM 9.3 mg/dL (8.4-10.2); GFR NON-AFRICAN AMERICAN > 60
[2019-02-08 20:54] VITALS: BP 123/71; PULSE 64; RESP 17; TEMP 98.6
--- NOTE | 2019-02-09 09:25 | RAD ---
Date of service: 02/08/2019 HISTORY: cough COMPARISON: Chest radiographs 11/30/2017. TECHNIQUE: Chest PA and lateral views FINDINGS: LUNGS: No active pulmonary disease. PLEURA: No significant pleural effusion identified. No pneumothorax apparent. CARDIOVASCULAR: No aortic atherosclerotic calcification present. Normal cardiac size. No pulmonary vascular congestion. OSSEOUS STRUCTURES: No significant abnormalities. VISUALIZED UPPER ABDOMEN: Normal. OTHER FINDINGS: None. IMPRESSION: No interval acute cardiopulmonary disease appreciated.
--- NOTE | 2019-02-09 09:27 | RAD ---
Date of service: 02/08/2019 PROCEDURE: Radiographs of the Left Shoulder HISTORY: PAIN COMPARISON: No prior. TECHNIQUE: 3 views obtained. FINDINGS: BONES: No acute fracture or destructive bony lesion identified. JOINTS: Glenohumeral and acromioclavicular joints preserved. No osteoarthritis. SOFT TISSUES: Normal. OTHER FINDINGS: None. IMPRESSION: Unremarkable radiographs of the left shoulder.
--- NOTE | 2019-02-09 11:25 | CARD ---
APPROVED REPORT Date of service: 02/08/2019 EKG Measurement Heart [id number] <Conclusion> Normal sinus rhythm Normal ECG
== END 2019-02-08 20:49 | disposition home or self-care (01) ==
LOC: H.ER 18:45
DX: R07.9 Chest pain, unspecified (principal); M25.512 Pain in left shoulder